=== PATIENT | female | born 1990 | race Caucasian/White ===

== ENCOUNTER 2016-10-14 18:59 | Emergency (ER) | payer OTHER ==
[~2016-10-14] VITALS: Ht 162.5 cm; Wt 81.6 kg
[~2016-10-14 18:59] MED LIST: FLEXERIL10 MG PO; NAPROSYN500 MG PO
[2016-10-14] MEDS ORDERED: ATABEX DHA 200200 MG PO (19:03)
[2016-10-14] MEDS ORDERED: NAPROSYN500 MG PO (19:23)
[2016-10-14] MEDS ORDERED: PREDNISONE50 MG PO (19:23)
[2016-10-14] MEDS ORDERED: Orphenadrine C100 MG PO (19:23)
[2016-10-14 20:45] LABS: BILIRUBIN NEGATIVE (NEGATIVE); BLOOD NEGATIVE (NEGATIVE); CLARITY CLEAR (CLEAR); COLOR YELLOW (YELLOW); GLUCOSE NEGATIVE (NEGATIVE); KETONE NEGATIVE (NEGATIVE); LEUKO ESTERASE NEGATIVE (NEGATIVE); NITRITE NEGATIVE (NEGATIVE); PROTEIN NEGATIVE (NEGATIVE); SPECIFIC GRAVITY 1.025 (1.005-1.030)
[2016-10-14 20:55] LABS: BACTERIA TRACE; EPITHELIAL CELLS 25-30; RBC 0-2 rbc/hpf (0-2); WBC 0-2 wbc/hpf (0-5)
[2016-10-14 20:58] LABS: URINE REFLEX COMMENT NO (NO)
== END 2016-10-14 23:39 | disposition home or self-care (01) ==
LOC: ED 18:59
PROVIDERS: Emergency Medicine Emergency Medical Services
DX: M54.9 Dorsalgia, unspecified (principal)

== ENCOUNTER → 2017-08-27 | Outpatient (CLI) | payer OTHER ==
[~2017-08-27] MED LIST changes: +ATABEX DHA 200200 MG PO; +Orphenadrine C100 MG PO; +PREDNISONE50 MG PO
[2017-08-27 15:48] LABS: BASO # 0.1 10*3/uL (0.0-0.1); BASO % 0.8 % (0.0-1.0); EOS # 0.3 10*3/uL (0.0-0.4); EOS % 3.9 % (1.0-4.0); HEMATOCRIT 42.6 % (37.0-47.0); LYMPH % 37.8 % (27.0-41.0); MEAN CELL VOLUME 87.3 fl (81.0-99.0); MEAN CORPUSCULAR HGB 28.7 pg (27.0-31.0); MEAN CORPUSCULAR HGB CONC 32.9 g/dl (33.0-37.0); MEAN PLATELET VOLUME 10.3 fl (9.6-12.3); MONO # 0.5 10*3/uL (0.1-1.0); MONO % 6.3 % (3.0-9.0); NEUT # 4.1 10*3/uL (2.3-7.9); NEUT % 50.9 % (47.0-73.0); PLATELET COUNT AUTOMATED 235 10*3/uL (130-400); RED BLOOD COUNT 4.88 10*6/uL (4.10-5.10); RED CELL DISTRI WIDTH 12.2 % (0-14.5)
[2017-08-27 16:18] LABS: ALBUMIN 3.7 gm/dl (3.1-4.5); ALKALINE PHOSPHATASE 70 U/L (45-117); BUN 14 mg/dl (7-24); CHLORIDE 105 mmol/L (98-107); CREATININE 1.08 mg/dL (0.55-1.02); FREE T4 0.77 ng/dl (0.76-1.46); POTASSIUM 3.7 mmol/L (3.5-5.1); SGOT/AST 21 IU/L (3-35); SGPT/ALT 30 U/L (12-78); SODIUM 139 mmol/L (136-145); TOTAL PROTEIN 7.6 gm/dL (6.4-8.2)
== END | disposition home or self-care (01) ==
LOC: LAB 15:19
PROVIDERS: Internal Medicine
DX: R53.83 Other fatigue (principal); R79.89 Other specified abnormal findings of blood chemistry

== ENCOUNTER 2018-10-22 16:45 | Emergency (ER) | payer OTHER ==
[~2018-10-22] VITALS: Ht 162.5 cm; Wt 86.2 kg
[~2018-10-22 16:45] MED LIST changes: +CHERATUSSIN AC118 M1 PO
[2018-10-22] MEDS ORDERED: CORTISPORIN SUS10 ML OT (17:19)
== END 2018-10-22 17:30 | disposition home or self-care (01) ==
LOC: ED 16:45
DX: H60.92 Unspecified otitis externa, left ear (principal)

== ENCOUNTER 2019-11-05 14:15 | Emergency (ER) | payer OTHER ==
[~2019-11-05] VITALS: Ht 162.5 cm; Wt 72.6 kg
[~2019-11-05 14:15] MED LIST changes: +CORTISPORIN SUS10 ML OT
== END 2019-11-05 17:55 | disposition home or self-care (01) ==
LOC: ED 14:15
DX: G43.909 Migraine, unspecified, not intractable, without status migrainosus (principal)

== ENCOUNTER 2020-07-25 22:41 | Emergency (ER) | payer OTHER ==
[~2020-07-25] VITALS: Ht 162.5 cm; Wt 86.2 kg
[2020-07-25] MEDS ORDERED: VYVANSE40 MG PO (22:46)
[2020-07-25] MEDS ORDERED: DULOXETINE HCL60 MG PO (22:46)
[2020-07-25] MEDS ORDERED: MEDROL DOSEPAK4 MG PO (23:39)
== END 2020-07-25 23:53 | disposition home or self-care (01) ==
LOC: ED 22:41
DX: L23.7 Allergic contact dermatitis due to plants, except food (principal); Z79.899 Other long term (current) drug therapy

== ENCOUNTER → 2021-02-17 | Outpatient (CLI) | payer BC ==
[~2021-02-17] MED LIST changes: +DULOXETINE HCL60 MG PO; +MEDROL DOSEPAK4 MG PO; +VYVANSE40 MG PO
== END | disposition home or self-care (01) ==
LOC: CARD 09:30
PROVIDERS: ATTEND Internal Medicine
DX: I08.1 Rheumatic disorders of both mitral and tricuspid valves (principal)

== ENCOUNTER → 2021-04-04 | Outpatient (CLI) | payer BC | END | disposition home or self-care (01) | LOC: MRI 09:00 | PROVIDERS: ATTEND Internal Medicine | DX: G93.6 Cerebral edema (principal); R51.9 Headache, unspecified ==

== ENCOUNTER → 2021-04-21 | Outpatient (CLI) | payer BC | END | disposition home or self-care (01) | LOC: MRI 08:50 | PROVIDERS: ATTEND Internal Medicine | DX: I10 Essential (primary) hypertension (principal) ==

== ENCOUNTER → 2021-09-19 | Outpatient (CLI) | payer BC ==
[2021-09-19 09:01] LABS: BASO # 0.1 10*3/uL (0.0-0.1); BASO % 0.8 % (0.0-1.0); EOS # 0.2 10*3/uL (0.0-0.4); EOS % 3.6 % (1.0-4.0); HEMATOCRIT 42.7 % (37.0-47.0); LYMPH # 1.8 10*3/uL (1.3-4.4); MEAN CELL VOLUME 84.6 fl (81.0-99.0); MEAN CORPUSCULAR HGB 28.7 pg (27.0-31.0); MEAN PLATELET VOLUME 10.1 fl (9.6-12.3); MONO # 0.4 10*3/uL (0.1-1.0); MONO % 6.5 % (3.0-9.0); NEUT # 3.7 10*3/uL (2.3-7.9); NEUT % 59.9 % (47.0-73.0); PLATELET COUNT AUTOMATED 270 10*3/uL (130-400); RED BLOOD COUNT 5.05 10*6/uL (4.10-5.10); RED CELL DISTRI WIDTH 12.4 % (0-14.5); WHITE BLOOD COUNT 6.2 10*3/uL (4.8-10.8)
[2021-09-19 09:27] LABS: BUN 15 mg/dl (7-24); CHLORIDE 110 mmol/L (98-107); CREATININE 0.84 mg/dL (0.55-1.02); POTASSIUM 3.8 mmol/L (3.5-5.1); SGOT/AST 15 IU/L (3-35); SGPT/ALT 27 U/L (12-78); SODIUM 140 mmol/L (136-145); TRIGLYCERIDES 139 mg/dl (<150)
[2021-09-19 09:35] LABS: ALKALINE PHOSPHATASE 73 U/L (45-117); CHOLESTEROL 148 mg/dL (<200); LDL CHOLESTEROL 73 mg/dL (9-159); T3 UPTAKE 32 % (31-39); TOTAL PROTEIN 7.4 gm/dL (6.4-8.2)
[2021-09-20 06:08] LABS: RHEUMATOID FACTOR <10.0 IU/mL (<14.0)
[2021-09-20 16:07] LABS: ANTI-DSDNA ANTIBODIES <1 IU/mL (0-9)
[2021-09-23 01:06] LABS: CCP ANTIBODIES IGG/IGA 3 units (0-19)
== END | disposition home or self-care (01) ==
LOC: LAB 08:38
PROVIDERS: ATTEND Internal Medicine
DX: R05.9 Cough, unspecified (principal); I10 Essential (primary) hypertension; R21 Rash and other nonspecific skin eruption; G62.9 Polyneuropathy, unspecified

== ENCOUNTER → 2021-12-02 | Outpatient (CLI) | payer OTHER | END | disposition home or self-care (01) | LOC: US 16:00 → LAB 16:14 | PROVIDERS: ATTEND Nurse Practitioner Women's Health | DX: R10.2 Pelvic and perineal pain (principal); M25.50 Pain in unspecified joint ==

== ENCOUNTER → 2022-07-27 | Outpatient (CLI) | payer OTHER ==
[2022-07-27 09:42] LABS: BASO % 0.6 % (0.0-1.0); EOS # 0.3 10*3/uL (0.0-0.4); EOS % 4.4 % (1.0-4.0); HEMATOCRIT 42.7 % (37.0-47.0); LYMPH # 2.2 10*3/uL (1.3-4.4); LYMPH % 33.4 % (27.0-41.0); MEAN CELL VOLUME 85.9 fl (81.0-99.0); MEAN CORPUSCULAR HGB 29.2 pg (27.0-31.0); MONO # 0.4 10*3/uL (0.1-1.0); MONO % 5.6 % (3.0-9.0); NEUT # 3.7 10*3/uL (2.3-7.9); NEUT % 55.8 % (47.0-73.0); PLATELET COUNT AUTOMATED 269 10*3/uL (130-400); RED BLOOD COUNT 4.97 10*6/uL (4.10-5.10); RED CELL DISTRI WIDTH 12.3 % (0-14.5); WHITE BLOOD COUNT 6.6 10*3/uL (4.8-10.8)
[2022-07-27 10:28] LABS: ALKALINE PHOSPHATASE 74 U/L (46-116); BUN 14 mg/dl (9-23); CHLORIDE 108 mmol/L (98-107); CHOLESTEROL 147 mg/dL (<200); FREE T4 1.15 ng/dl (0.89-1.76); LDL CHOLESTEROL 82 mg/dL (9-159); POTASSIUM 3.8 mmol/L (3.4-5.1); SGPT/ALT 17 U/L (10-49); THYROID STIM HORMONE (HS) 1.679 uIU/ml (0.550-4.780); TOTAL PROTEIN 7.1 gm/dL (6.0-8.0); TRIGLYCERIDES 85 mg/dl (<150)
[2022-07-27 10:29] LABS: VITAMIN D, 25-HYDROXY 43.1 ng/mL (30-100)
[2022-07-28 08:07] LABS: THYROID PEROXIDASE (TPO) AB 9 IU/mL (0-34)
[2022-07-29 16:08] LABS: INSULIN-LIKE GROWTH FACTOR-1 207 ng/mL (84-281)
[2022-07-31 04:06] LABS: TESTOSTERONE FREE, (DIRECT) 0.7 pg/mL (0.0-4.2)
== END | disposition home or self-care (01) ==
LOC: LAB 08:44
PROVIDERS: ATTEND Physician Assistant Medical
DX: Z13.220 Encounter for screening for lipoid disorders (principal); Z13.21 Encounter for screening for nutritional disorder; Z13.228 Encounter for screening for other metabolic disorders; I10 Essential (primary) hypertension; F41.9 Anxiety disorder, unspecified; K21.9 Gastro-esophageal reflux disease without esophagitis; E78.2 Mixed hyperlipidemia; R53.83 Other fatigue; G89.29 Other chronic pain; F90.9 Attention-deficit hyperactivity disorder, unspecified type

== ENCOUNTER → 2023-02-10 | Outpatient (CLI) | payer OTHER ==
[2023-02-11 14:08] LABS: ANTI-DSDNA ANTIBODIES <1 IU/mL (0-9)
== END | disposition home or self-care (01) ==
LOC: LAB 15:13
PROVIDERS: ATTEND Internal Medicine
DX: M32.9 Systemic lupus erythematosus, unspecified (principal)

== ENCOUNTER → 2023-06-22 | Outpatient (CLI) | payer OTHER ==
[2023-06-22 09:00] LABS: BASO % 0.6 % (0.0-1.0); EOS # 0.3 10*3/uL (0.0-0.4); EOS % 4.2 % (1.0-4.0); LYMPH # 2.3 10*3/uL (1.3-4.4); LYMPH % 33.1 % (27.0-41.0); MEAN CELL VOLUME 86.2 fl (81.0-99.0); MEAN CORPUSCULAR HGB CONC 32.4 g/dl (33.0-37.0); MEAN PLATELET VOLUME 10.3 fl (9.6-12.3); MONO # 0.5 10*3/uL (0.1-1.0); MONO % 6.8 % (3.0-9.0); NEUT # 3.8 10*3/uL (2.3-7.9); PLATELET COUNT AUTOMATED 303 10*3/uL (130-400); RED BLOOD COUNT 5.22 10*6/uL (4.10-5.10); RED CELL DISTRI WIDTH 12.1 % (0-14.5); WHITE BLOOD COUNT 6.9 10*3/uL (4.8-10.8)
[2023-06-22 09:14] LABS: ALKALINE PHOSPHATASE 72 U/L (46-116); BUN 12 mg/dl (9-23); CHLORIDE 107 mmol/L (98-107); CHOLESTEROL 151 mg/dL (<200); FREE T4 1.02 ng/dl (0.89-1.76); LDL CHOLESTEROL 86 mg/dL (9-159); POTASSIUM 3.9 mmol/L (3.4-5.1); SGPT/ALT 21 U/L (5-49); TOTAL PROTEIN 7.2 gm/dL (6.0-8.0); TRIGLYCERIDES 92 mg/dl (<150)
[2023-06-22 09:17] LABS: VITAMIN D, 25-HYDROXY 40.9 ng/mL (30-100)
== END ==
LOC: LAB 08:31
PROVIDERS: ATTEND Internal Medicine
DX: Z13.1 Encounter for screening for diabetes mellitus (principal); Z13.0 Encounter for screening for diseases of the blood and blood-forming organs and certain disorders involving the immune mechanism; Z13.21 Encounter for screening for nutritional disorder; Z13.220 Encounter for screening for lipoid disorders; Z13.228 Encounter for screening for other metabolic disorders; Z13.29 Encounter for screening for other suspected endocrine disorder; Z13.6 Encounter for screening for cardiovascular disorders; Z13.89 Encounter for screening for other disorder; Z13.9 Encounter for screening, unspecified

== ENCOUNTER → 2023-07-16 | Outpatient (CLI) | payer OTHER | END | disposition home or self-care (01) | LOC: LAB 08:47 | PROVIDERS: ATTEND Physician Assistant | DX: R06.02 Shortness of breath (principal); I10 Essential (primary) hypertension; R51.9 Headache, unspecified; L50.9 Urticaria, unspecified ==

== ENCOUNTER → 2024-05-08 | Outpatient (CLI) | payer OTHER ==
[2024-05-08 14:35] LABS: BUN 13 mg/dl (9-23); CHLORIDE 105 mmol/L (98-107); POTASSIUM 4.1 mmol/L (3.4-5.1)
== END | disposition home or self-care (01) ==
LOC: LAB 14:02
PROVIDERS: ATTEND Internal Medicine
DX: I10 Essential (primary) hypertension (principal)

== ENCOUNTER → 2024-05-15 | Outpatient (CLI) | payer OTHER | END | disposition home or self-care (01) | LOC: LAB 08:45 | PROVIDERS: ATTEND Internal Medicine | DX: G47.10 Hypersomnia, unspecified (principal); I1A.0 Resistant hypertension ==

== ENCOUNTER → 2024-08-14 | Outpatient (CLI) | payer OTHER ==
[2024-08-14 10:57] LABS: BASO # 0.1 10*3/uL (0.0-0.1); BASO % 0.7 % (0.0-1.0); EOS # 0.4 10*3/uL (0.0-0.4); EOS % 4.4 % (1.0-4.0); HEMATOCRIT 43.5 % (37.0-47.0); MEAN CORPUSCULAR HGB 28.7 pg (27.0-31.0); MEAN CORPUSCULAR HGB CONC 33.3 g/dl (33.0-37.0); MEAN PLATELET VOLUME 9.8 fl (9.6-12.3); MONO # 0.5 10*3/uL (0.1-1.0); MONO % 5.9 % (3.0-9.0); NEUT # 4.8 10*3/uL (2.3-7.9); NEUT % 57.2 % (47.0-73.0); PLATELET COUNT AUTOMATED 275 10*3/uL (130-400); RED BLOOD COUNT 5.06 10*6/uL (4.10-5.10); RED CELL DISTRI WIDTH 12.4 % (0-14.5); WHITE BLOOD COUNT 8.4 10*3/uL (4.8-10.8)
== END | disposition home or self-care (01) ==
LOC: LAB 10:32
PROVIDERS: ATTEND Allergy & Immunology
DX: L50.8 Other urticaria (principal)